=== PATIENT | male | born 1980 | race Caucasian/White ===

== ENCOUNTER 2020-04-12 21:05 | Emergency (ER) | payer OTHER ==
[~2020-04-12] VITALS: Ht 182.9 cm; Wt 90.9 kg
[~2020-04-12 21:05] MED LIST: NO HOME MEDICATIONS; NORCO 325 MG-7.1 TAB PO
[2020-04-12 23:23] VITALS: BP 126/74; PULSE 82; TEMP 98.1
[2020-04-12] MEDS ORDERED: NORCO 325 MG-51 TAB PO (23:26)
== END 2020-04-12 23:48 | disposition home or self-care (01) ==
LOC: COL.ER 21:05
DX: S20.212A Contusion of left front wall of thorax, initial encounter (principal); S20.211A Contusion of right front wall of thorax, initial encounter; S00.81XA Abrasion of other part of head, initial encounter; Z23 Encounter for immunization; F17.210 Nicotine dependence, cigarettes, uncomplicated; W28.XXXA Contact with powered lawn mower, initial encounter; Y92.009 Unspecified place in unspecified non-institutional (private) residence as the place of occurrence of the external cause
CPT/HCPCS: J1885

== ENCOUNTER 2020-06-24 19:19 | Emergency (ER) | payer OTHER ==
[~2020-06-24] VITALS: Ht 185.4 cm; Wt 93.2 kg
[~2020-06-24 19:19] MED LIST changes: +NORCO 325 MG-51 TAB PO
[2020-06-24 19:25] VITALS: TEMP 97.8
[2020-06-24 19:49] LABS: BASO # 0.1 (0.0-0.2); BASO % 0.3 % (0.0-2.0); EOS # 0.1 (0.0-0.7); EOS % 0.4 % (0-4.0); GRAN # 15.3 (1.4-6.5); GRAN % 79.5 % (42.2-75.2); HEMATOCRIT 39.1 % (42.0-52.0); HEMOGLOBIN 14.6 g/dl (13.5-18.0); LYMPH # 2.2 (1.2-3.4); LYMPH % 11.2 % (20.0-51.0); MEAN CELL VOLUME 93 fl (80.0-100.0); MEAN CORPUSCULAR HEMOGLOBIN 35 pg (27.0-31.0); MEAN CORPUSCULAR HGB CONC 37 g/dl (33.0-37.0); MEAN PLATELET VOLUME 11.4 fl (7.4-10.4); MONO # 1.5 (0.1-0.6); MONO % 7.7 % (1.7-9.3); PLATELET COUNT 134 K/mm3 (130-400); REDCELL DISTRIBUTION WIDTH-CV 16.9 % (11.5-14.5)
[2020-06-24 19:50] LABS: INR 2.1 (0.8-3.0); PROTHROMBIN TIME 24.2 SECONDS (9.7-12.8)
[2020-06-24 19:52] LABS: PARTIAL THROMBOPLASTIN TIME 44.1 SECONDS (26.0-37.0)
[2020-06-24 19:56] LABS: ALANINE AMINOTRANSFERASE 75 U/L (4-49); ALKALINE PHOSPHATASE 243 U/L (50-136); ANION GAP 9 mmol/L (7-16); AST,SGOT 274 U/L (15-37); BILIRUBIN,TOTAL 13.5 mg/dL (0.0-1.0); BLOOD UREA NITROGEN 5 mg/dL (9-20); CALCIUM 8.2 mg/dL (8.4-10.2); CARBON DIOXIDE 32 mmol/L (22-30); CREATINE KINASE 59 U/L (55-170); CREATININE, serum 0.46 (0.66-1.25); GLUCOSE 99 mg/dL (74-106); LIPASE 55 U/L (23-300); POTASSIUM 3.2 mmol/L (3.4-5.0); TOTAL PROTEIN 7.2 gm/dL (6.4-8.2)
[2020-06-24 20:01] LABS: ALCOHOL(ethanol),MEDICAL < 10 mg/dL; CHLORIDE 76 mmol/L (98-107)
[2020-06-24 20:02] LABS: SODIUM 117 mmol/L (137-145)
[2020-06-24 20:09] LABS: TROPONIN-I < 0.012 ng/mL (0.000-0.035)
[2020-06-24 22:42] VITALS: BP 118/80
[2020-06-24 23:04] VITALS: PULSE 86
== END 2020-06-24 23:10 | disposition short-term general hospital (02) ==
LOC: COL.ER 19:19
PROVIDERS: Emergency Medicine
DX: K72.90 Hepatic failure, unspecified without coma (principal); E87.1 Hypo-osmolality and hyponatremia; E87.6 Hypokalemia; F17.210 Nicotine dependence, cigarettes, uncomplicated

== ENCOUNTER 2020-07-10 19:05 | Emergency (ER) | payer OTHER ==
[~2020-07-10] VITALS: Ht 185.4 cm; Wt 100.9 kg
[2020-07-10 19:09] VITALS: TEMP 98.5
[2020-07-10 19:54] LABS: BASO % 0.1 % (0.0-2.0); GRAN # 6.2 (1.4-6.5); GRAN % 81.8 % (42.2-75.2); HEMOGLOBIN 12.2 g/dl (13.5-18.0); LYMPH # 0.7 (1.2-3.4); LYMPH % 8.8 % (20.0-51.0); MEAN CELL VOLUME 100 fl (80.0-100.0); MEAN CORPUSCULAR HEMOGLOBIN 35 pg (27.0-31.0); MEAN CORPUSCULAR HGB CONC 35 g/dl (33.0-37.0); MEAN PLATELET VOLUME 11.7 fl (7.4-10.4); MONO # 0.6 (0.1-0.6); MONO % 8.2 % (1.7-9.3); PLATELET COUNT 85 K/mm3 (130-400); REDCELL DISTRIBUTION WIDTH-CV 17.7 % (11.5-14.5)
[2020-07-10] MEDS ORDERED: VITAMIN D 50,1.25 MG PO (19:55)
[2020-07-10] MEDS ORDERED: FOLIC ACID 11 MG/TA1 PO (19:56)
[2020-07-10] MEDS ORDERED: LASIX 20MG TABL20 MG PO (19:56)
[2020-07-10] MEDS ORDERED: PREDNISONE20 MG PO (19:57)
[2020-07-10] MEDS ORDERED: THIAMINE 1100 MG/TAB PO (19:57)
[2020-07-10] MEDS ORDERED: ALDACTONE50 MG PO (19:57)
[2020-07-10 19:58] LABS: INR 1.3 (0.8-3.0); PROTHROMBIN TIME 14.2 SECONDS (9.7-12.8)
[2020-07-10] MEDS ORDERED: BACTRIM DS 8001 TAB PO (19:58)
[2020-07-10 20:01] LABS: PARTIAL THROMBOPLASTIN TIME 38.2 SECONDS (26.0-37.0)
[2020-07-10 20:04] LABS: BILIRUBIN,TOTAL 5.2 mg/dL (0.0-1.0); C-REACTIVE PROTEIN 2.9 mg/dL (0.0-0.9); CALCIUM 8.3 mg/dL (8.4-10.2); CREATININE, serum 0.48 (0.66-1.25); POTASSIUM 4.5 mmol/L (3.4-5.0); TOTAL PROTEIN 6.8 gm/dL (6.4-8.2)
[2020-07-10 20:13] LABS: HEMATOCRIT 35.1 % (42.0-52.0)
[2020-07-10 20:34] LABS: TROPONIN-I < 0.012 ng/mL (0.000-0.035)
[2020-07-10 21:23] LABS: COLLECTION METHOD CLEAN CATCH
[2020-07-10 21:48] LABS: MUCOUS Present /lpf; PH 5 (5-8); SQUAMOUS EPITHELIAL 0-2 /hpf; URINE APPEARANCE Clear; URINE BACTERIA None Seen /hpf; URINE BILIRUBIN Positive (NEGATIVE); URINE BLOOD Negative (NEGATIVE); URINE COLOR Amber; URINE GLUCOSE Negative (NEGATIVE); URINE KETONE Negative (NEGATIVE); URINE LEUKOCYTE ESTERASE Negative (NEGATIVE); URINE NITRATE Negative (NEGATIVE); URINE PROTEIN(semi-quant) Negative (NEGATIVE); URINE RBC 0-2 /hpf
[2020-07-10 22:10] VITALS: BP 125/94; PULSE 97
== END 2020-07-10 22:07 | disposition home or self-care (01) ==
LOC: COL.ER 19:05
PROVIDERS: Emergency Medicine
DX: B54 Unspecified malaria (principal); K74.60 Unspecified cirrhosis of liver; R18.8 Other ascites; U07.1 COVID-19; Z87.891 Personal history of nicotine dependence; Z79.01 Long term (current) use of anticoagulants
CPT/HCPCS: J0696

== ENCOUNTER → 2021-12-23 | Outpatient (CLI) | payer BC, OTHER ==
[~2021-12-23] MED LIST changes: +ALDACTONE50 MG PO; +BACTRIM DS 8001 TAB PO; +FOLIC ACID 11 MG/TA1 PO; +LASIX 20MG TABL20 MG PO; +PREDNISONE20 MG PO; +THIAMINE 1100 MG/TAB PO; +VITAMIN D 50,1.25 MG PO
== END ==
LOC: COL.RAD 07:29
DX: Z00.00 Encounter for general adult medical examination without abnormal findings (principal); K70.30 Alcoholic cirrhosis of liver without ascites; R16.1 Splenomegaly, not elsewhere classified